=== PATIENT | female | born 1985 | race Caucasian/White ===

== ENCOUNTER 2019-12-27 11:13 | Emergency (ER) | payer OTHER, SELFPAY ==
[2019-12-27 11:15] VITALS: BP 123/78; PULSE 72; RESP 14; TEMP 35.8; O2SAT 98; BMI 34.8
--- NOTE | 2019-12-27 11:25 | ED_ITS ---
HPI - Wound/Laceration <WENDI Neumann - Last Filed: 12/27/19 12:02> General Chief Complaint: Wound/Laceration Stated Complaint: Cut rt hand/middle finger Time Seen by Provider: 12/27/19 11:21 Source: patient Mode of arrival: Ambulatory Limitations: no limitations History of Present Illness HPI narrative: This is a 34 year female, smoker, who presents to ED with significant other with chief complain of laceration on right, dominant hand, 3rd knuckle laceration from a steak knife about an hour ago. Patient reports she was unloading a senior it specialist and accidentally got a laceration from a knife that was sticking up. 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 Patient reports intact sensation and is able to move her hand/fingers and able to make a fist without difficulty. No active bleeding at this time. Related Data Allergies Allergy/AdvReac Type Severity Reaction Status Date / Time No Known Drug Allergies Allergy Verified 12/27/19 11:20 Review of Systems <WENDI Neumann - Last Filed: 12/27/19 12:02> Review of Systems Narrative: General: Denies fever, chills, fatigue, malaise, sweats. Respiratory: Denies dyspnea, cough, wheezing, hemoptysis, sputum. Cardiovascular: Denies chest pain, palpitations, orthopnea, edema. Musculoskeletal: Denies weakness, joint pain or bony pain. Skin: See HPI Neurologic: Denies weakness, headache, numbness, change in speech, confusion, seizures, incoordination. Psychiatric: No concerning psychosocial issues. 12-point review of systems is negative except for those stated above. Patient History <WENDI Neumann - Last Filed: 12/27/19 12:02> Medical History (Updated 12/27/19 @ 11:58 by WENDI Neumann) Anxiety (Acute) Depression (Acute) Surgical History (Updated 12/27/19 @ 11:28 by WENDI Neumann) History of knee surgery (Acute) Social History (Updated 12/27/19 @ 11:29 by WENDI Neumann) Smoking Status: Unknown if ever smoked alcohol intake: current Smoking Status: Unknown if ever smoked alcohol intake frequency: holidays/special occasions only Substance Use Type: does not use Exam <WENDI Neumann - Last Filed: 12/27/19 12:02> Narrative Exam Narrative: General appearance: well developed, well nourished, in no acute distress. Head: normocephalic, atraumatic, no scalp lesions, non-tender. ENT: Bilateral auditory canals and tympanic membranes clear. Hearing grossly intact. Nose without bleeding, purulent discharge, septal hematoma or deviation. Turbinate without erythema or swelling. Facial sinuses nontender to palpate. Mucous membrane moist, no mucosal lesion. Throat without erythema, tonsillar hypertrophy or exudate. Uvula in midline, airway patent. Neck/Thyroid: neck supple, full range of motion, no visible masses or meningeal signs. No JVD, non-tender without lymphadenopathy. Skin: 2 cm vertical laceration over right 3rd metacarpal joint Heart: no clubbing, no cyanosis, no edema. S1 and S2 normal. RRR w/o murmurs, clicks, or bruits. Lungs: Breathing even and unlabored. No stridor. No accessory muscles used. Able to speak in full sentences. Chest: normal shape and expansion. Abdomen: non-obese, non-distended. Neurologic: alert and oriented. Cognitive exam, [employer]ATOR and PNS grossly intact on informal exam. Psych: good eye contact, normal affect. Initial Vital Signs Initial Vital Signs: Vital Signs Temperature 96.4 F L 12/27/19 11:15 Pulse Rate 72 12/27/19 11:15 Respiratory Rate 14 12/27/19 11:15 Blood Pressure 123/78 12/27/19 11:15 Pulse Oximetry 98 12/27/19 11:15 Extrem Right upper extremity: hand Details: abnormal to inspection, normal capillary refill, neuromotor exam normal, neurosensory exam normal, tendon exam normal, vascular exam Details: radial pulse present and normal capillary refill, normal ROM of fingers and laceration; no swelling, no ecchymosis, no crepitus and no foreign bodies <Jina Chavez MD - Last Filed: 12/27/19 18:19> Initial Vital Signs Initial Vital Signs: Vital Signs Temperature 96.4 F L 12/27/19 11:15 Pulse Rate 72 12/27/19 11:15 Respiratory Rate 14 12/27/19 11:15 Blood Pressure 123/78 12/27/19 11:15 Pulse Oximetry 98 12/27/19 11:15 Procedures <Ebenezer MalloryWENDI Vaca - Last Filed: 12/27/19 12:02> Laceration Repair Laceration 1: Site: hand Side (If applicable): right Size (cm): 2 Description: linear Depth: simple, single layer Local Anesthetic: lidocaine 1% and with bicarb Amount of anesthesia used (mL): 4 Pre-repair: wound explored and irrigated extensively Skin layer closed with: nylon Size (cm): 4-0 Number of sutures: 3 Scores <Ebenezer CastellanosPADMINI VacaP - Last Filed: 12/27/19 12:02> GCS [place] coma scale eye opening: Spontaneous [place] coma scale verbal response: Orientated [place] coma scale motor response: Obey commands [place] coma scale total score: 15 Course <Ebenezer CastellanosWENDI Vaca - Last Filed: 12/27/19 12:02> Orders Ordered: Discontinued Medications Bacitracin (Bacitracin) 1 applic TOP NOW ONE Stop: 12/27/19 11:25 Last Admin: 12/27/19 11:42 Dose: 1 applic Documented by: BIRDIE Lidocaine/Sodium Bicarbonate (Buffered Lidocaine 10 Ml Syr) 10 ml INJ NOW ONE Stop: 12/27/19 11:25 Last Admin: 12/27/19 11:42 Dose: 10 ml Documented by: BIRDIE Vital Signs Vital signs: Vital Signs - 8 hr 12/27/19 11:15 Temperature 96.4 F L Pulse Rate 72 Respiratory Rate 14 Blood Pressure 123/78 Pulse Oximetry 98 <Jina Chavez MD - Last Filed: 12/27/19 18:19> Orders Ordered: Discontinued Medications Bacitracin (Bacitracin) 1 applic TOP NOW ONE Stop: 12/27/19 11:25 Last Admin: 12/27/19 11:42 Dose: 1 applic Documented by: BIRDIE Lidocaine/Sodium Bicarbonate (Buffered Lidocaine 10 Ml Syr) 10 ml INJ NOW ONE Stop: 12/27/19 11:25 Last Admin: 12/27/19 11:42 Dose: 10 ml Documented by: BIRDIE Vital Signs Vital signs: Vital Signs - 8 hr 12/27/19 11:15 Temperature 96.4 F L Pulse Rate 72 Respiratory Rate 14 Blood Pressure 123/78 Pulse Oximetry 98 [facility] - Wound/Laceration <WENDI Neumann - Last Filed: 12/27/19 12:02> Differential Diagnosis Differential diagnosis: Likely laceration Medical Records Attestation: I reviewed the patient's medical records. [facility] Narrative Medical decision making narrative: This is a 34 year female who presents to ED with 2 cm vertical linear laceration over right, dominant hand, 3rd metacarpal joint from a clean steak knife about 1 hour prior coming into ED. tetanus immunization is up to date. Patient is able to move her affected hand/fingers without difficulty with intact sensation. Laceration has been repaired with 3 s utures. See procedure note. Return precautions, home wound care discussed with patient. Modified work note provided to prevent rupturing suture from excessive movement of right hand. Patient verbalized understanding and agreement with treatment plan. Patient tolerated procedure well. Discharge Plan Departure Patient Disposition: Home Clinical Impression: Laceration Discharge Date/Time: 12/27/19 12:07 Instructions: DI for Laceration Repair Activity Restrictions/Additional Instructions: You have been diagnosed with [ linear 2 cm laceration on right, dominant hand, on 3rd meta carpal knuckle which has been repaired with 3 sutures.]. What to do: Please do not get your wound soaked in the water until suture removal. Keep your dressing intact for next 24 hrs. After then, you could remove your dressing, wash with soap and water. Pat dry with clean paper towel and dress it with antibiotic ointment. You can change dressing as needed and daily. Please monitor for signs and symptoms for infection such as increasing redness, swelling, warmth, pain, fever, purulent discharge. If this occurs, please return to ED or follow up with your primary care physician since your wound may be gotten infected. Please follow up with your primary care provider in 2-3 days for recheck wound. Your suture should be removed [7-10 ] days. This can be done by your primary provider, walk-in clinic or here in ED. Please keep your wound clean, dry and intact all times. *Take your medications as directed. You can take [id number] Tylenol and or Motrin as needed for discomfort. Please avoid using affected hand excessively to prevent rupturing sutures. [facility]errals: [facility] [Outside] Stand Alone Forms: Work Release Note <Jina L Laursen, MD - Last Filed: 12/27/19 18:19> Cosign ED Attending Cosignature Attestation: I was immediately available in the department for consultation throughout this patient's visit. I agree with documentation as above. Jina Chavez MD
[2019-12-27] MEDS: LIDO 1%/SOD BICARB 8.4% (10ML) 10 ML SYRINGE INJ (11:42)
[2019-12-27] MEDS: BACITRACIN OINT 0.9 GM PCKT 1 APPLIC TOP (11:42)
== END 2019-12-27 12:07 | disposition home or self-care (01) ==
PROVIDERS: Emergency Provider Nurse Practitioner Family
DX: S61.411A Laceration without foreign body of right hand, initial encounter (principal); W26.0XXA Contact with knife, initial encounter
CPT/HCPCS: 12001; 99283

== ENCOUNTER 2020-05-20 22:08 | Emergency (ER) | payer OTHER, SELFPAY ==
[2020-05-20 22:10] VITALS: BP 135/86; PULSE 92; RESP 16; TEMP 36.9; O2SAT 99; BMI 34.8
[2020-05-20 22:38] LABS: Add Manual Diff / Slide Review NO; Basophils Absolute Auto 100 /uL (0-100); Basophils Percent Auto 0.8 % (0-2); Eosinophils Absolute Auto 200 /uL (0-450); Eosinophils Percent Auto 2.3 % (2-4); Hematocrit 48.2 % (36-46); Hemoglobin 16.1 g/dL (12.0-16.0); Lymphocytes Absolute Auto 2100 /uL (1100-4500); Lymphocytes Percent Auto 24.8 % (25-40); Mean Corpuscular HGB Conc 33.4 % (30-36); Mean Corpuscular Hemoglobin 32.8 PG (26-34); Mean Corpuscular Volume 98.2 fL (80-100); Monocytes Absolute Auto 700 /uL (0-900); Monocytes Percent Auto 8.2 % (3-14); Neutrophils Absolute Auto 5500 /uL (1500-7000); Neutrophils Percent Auto 63.9 % (50-75); Platelet Count 327 X10^3/uL (150-400); Red Blood Cell Count 4.91 X10^6/uL (4.0-5.2); Red Cell Distribution Width 12.3 % (11.6-14.8); White Blood Cell Count 8.6 X10^3/uL (4.5-11.0)
[2020-05-20 22:45] LABS: BUN Creatinine Ratio 18.3 (6-22); Blood Urea Nitrogen 21 mg/dL (7-17); Calcium 9.3 mg/dL (8.4-10.2); Carbon Dioxide 28 mmol/L (22-32); Chloride 103 mmol/L (98-107); Glucose 107 mg/dL (70-100); HEMOLYSIS 16 (0-50); Potassium 3.9 mmol/L (3.4-5.1); Sodium 139 mmol/L (137-145)
--- NOTE | 2020-05-20 22:48 | DI.CT.S_ITS ---
PROCEDURE: CT KIDNEY URETER BLADDER (KUB) INDICATIONS: Possible right-sided kidney stone TECHNIQUE: Noncontrast 5 mm thick sections acquired from the diaphragms to the symphysis. 5 mm thick coronal and sagittal reformats were then performed. For radiation dose reduction, the following was used: automated exposure control, adjustment of mA and/or kV according to patient size. COMPARISON: None. FINDINGS: Image quality: Excellent. Lung bases: Lung bases are clear. Heart size is normal. Urinary system: There are bilateral calcifications within the medullary pyramids of the kidneys consistent with medullary nephrocalcinosis. In addition, there are at least 4 nonobstructing renal stones on the right with the largest measuring up to 7 mm and at least 8 nonobstructing stones on the left, with the largest measuring up to approximately 3 mm. No hydronephrosis or perinephric stranding. Both ureters appear non-dilated throughout their expected courses. Bladder wall thickness is normal; no calcified bladder stones. Other solid organs: Noncontrast evaluation of the liver demonstrates no focal hepatic lesions. Gallbladder appears within normal limits without calcified gallstones. Pancreas is normal in contours without peripancreatic fat stranding or fluid collections. Spleen is normal in size. No adrenal nodules. Peritoneum and bowel: Unenhanced bowel loops demonstrate normal wall thickness and caliber. No evidence of appendicitis. There are few colonic diverticula without acute diverticulitis. No free fluid or air. Nodes and vessels: No retroperitoneal or mesenteric adenopathy by size criteria. Aorta and inferior vena cava are normal in caliber. Abdominal wall: No ventral hernias. Pelvis: No free pelvic fluid. No inguinal hernias or adenopathy. Bones: No suspicious bony lesions. No vertebral body compression fractures. IMPRESSION: 1. Bilateral nephrolithiasis without evidence of obstructive uropathy. 2. Bilateral medullary nephrocalcinosis demonstrated in the kidneys. The findings are nonspecific and the differential is broad including medullary sponge kidney, hyperparathyroidism, or renal tubular acidosis among other etiologies. Dictated by: Andrey Craven M.D. on 05/21/2020 at 8:55 Approved by: Andrey Craven M.D. on 05/21/2020 at 9:01
--- NOTE | 2020-05-20 22:49 | ED_ITS ---
HPI - General Adult General Chief complaint: Abdominal Pain Stated complaint: thinks she has a kidney stone Time Seen by Provider: 05/20/20 22:12 Source: patient Mode of arrival: Ambulatory Limitations: no limitations History of Present Illness HPI narrative: Otherwise healthy 34-year-old female with history of multiple kidney stones and lithotripsy here for evaluation of 2 weeks of right-sided flank pain. She states she came in today because earlier in the day she had some problems urinating. No fevers. She states that it feels ?somewhat ?like prior history of kidney stones. Has not tried anything for her symptoms prior to arrival. Related Data Home Medications Medication Instructions Recorded Confirmed acetazolamide 250 mg tablet 500 mg PO BID tab 04/26/20 04/26/20 buspirone 15 mg tablet 15 mg PO BID 04/26/20 04/26/20 omeprazole 20 mg capsule,delayed 20 mg PO DAILY 04/26/20 04/26/20 release sertraline 50 mg tablet 50 mg PO DAILY 04/26/20 04/26/20 Allergies Allergy/AdvReac Type Severity Reaction Status Date / Time No Known Drug Allergies Allergy Verified 12/27/19 11:20 Review of Systems Constitutional Constitutional: Denies fever(s) and Denies headache(s) ENT Ears, Nose, Mouth, and Throat: Denies headache(s) Cardiovascular Cardiovascular: Denies chest pain and Denies dyspnea Respiratory Respiratory: Denies dyspnea Gastrointestinal Gastrointestinal: Denies change in bowel habits, Reports nausea and Denies vomiting Comments: Right-sided flank pain Genitourinary Genitourinary: Denies dysuria, Reports urinary frequency, Reports urinary hesitancy and Reports urinary urgency Genitourinary: Reports urinary frequency, Denies dysuria, Reports urinary hesitancy, Reports urinary urgency and Denies vaginal discharge Musculoskeletal Musculoskeletal: Denies arthralgias and Denies myalgias Integumentary/Breasts Skin/Breast: Denies rash Neurologic Neurologic: Denies behavioral changes and Denies headache(s) Psychiatric Psychiatric: Denies behavioral changes Hematologic/Lymphatic Hematologic/Lymphatic: Denies easy bleeding and Denies easy bruising Patient History Medical History Anxiety (Acute) Depression (Acute) Surgical History History of knee surgery (Acute) Family History Family/Other Loud snoring Hypertension Diabetes mellitus Heart disease Dementia Father Loud snoring Obesity Hypertension Depression Anxiety Substance abuse Mother Loud snoring Insomnia Restless leg Hypertension Substance abuse Family/Other ADD (attention deficit disorder) Substance abuse Social History Smoking Status: Current every day smoker alcohol intake: current Smoking Status: Current every day smoker tobacco type: vaping alcohol intake frequency: a few times a week Substance Use Type: does not use Exam Initial Vital Signs Initial Vital Signs: Vital Signs Temperature 98.5 F 05/20/20 22:10 Pulse Rate 92 H 05/20/20 22:10 Respiratory Rate 16 05/20/20 22:10 Blood Pressure 135/86 05/20/20 22:10 Pulse Oximetry 99 05/20/20 22:10 Const General: cooperative and comfortable Limitations: mental status not altered HENMT Head: normal to inspection and normocephalic Resp Effort & Inspection: normal respiratory effort Cardio Rate: regular rate GI Inspection: non-distended Palpation: tender (Right flank/right lower quadrant) Back/Spine/Pelvis Back: No CVA tenderness Skin Lesions: no lesions Rashes: no rashes Neuro General: patient alert and patient awake Cognition: normal cognition Speech: speech normal Extrem General: normal to inspection and capillary refill normal Psych Appearance: grossly normal and well kempt Scores GCS [place] coma scale eye opening: Spontaneous [place] coma scale motor response: Obey commands Course Orders Ordered: ED Orders 05/20/20 22:22 Basic Metabolic Panel Stat Complete Blood Count AUTO DIFF Stat 05/20/20 22:48 CT kidney ureter bladder (KUB) Stat Discontinued Medications Hydromorphone HCl (Dilaudid) 1 mg IV NOW ONE Stop: 05/20/20 22:50 Last Admin: 05/20/20 23:02 Dose: 1 mg Documented by: ARVIND Ketorolac Tromethamine (Toradol) 30 mg IV NOW ONE Stop: 05/20/20 22:50 Last Admin: 05/20/20 23:02 Dose: 30 mg Documented by: ARVIND Ondansetron HCl (Zofran) 4 mg IV NOW ONE Stop: 05/20/20 22:50 Last Admin: 05/20/20 23:02 Dose: 4 mg Documented by: ARVIND Vital Signs Vital signs: Vital Signs - 8 hr 05/20/20 22:10 05/21/20 00:00 Temperature 98.5 F Pulse Rate 92 H 78 Respiratory Rate 16 18 Blood Pressure 135/86 128/88 Pulse Oximetry 99 98 Medical Decision Making Lab Data Lab results reviewed: Yes I reviewed the patient's lab results. Result diagrams: 05/20/20 22:22 05/20/20 22:22 Labs: Lab Results 05/20/20 05/20/20 Range/Units 22:22 22:22 WBC 8.6 (4.5-11.0) X10^3/uL RBC 4.91 (4.0-5.2) X10^6/uL Hgb 16.1 H (12.0-16.0) g/dL Hct 48.2 H (36-46) % MCV 98.2 (80-100) fL MCH 32.8 (26-34) PG MCHC 33.4 (30-36) % RDW 12.3 (11.6-14.8) % Plt Count 327 (150-400) X10^3/uL Neut % (Auto) 63.9 (50-75) % Lymph % (Auto) 24.8 L (25-40) % [place] % (Auto) 8.2 (3-14) % Eos % (Auto) 2.3 (2-4) % Baso % (Auto) 0.8 (0-2) % Neut # (Auto) 5500 (9248-3729) /uL Lymph # (Auto) 2100 (5917-0510) /uL [place] # (Auto) 700 (0-900) /uL Eos # (Auto) 200 (0-450) /uL Baso # (Auto) 100 (0-100) /uL Sodium 139 (137-145) mmol/L Potassium 3.9 (3.4-5.1) mmol/L Chloride 103 (98-107) mmol/L Carbon Dioxide 28 (22-32) mmol/L BUN 21 H (7-17) mg/dL Creatinine 1.15 H (0.52-1.04) mg/dL Estimated GFR 54.0 L (>60) mL/min BUN/Creatinine Ratio 18.3 (6-22) Glucose 107 H (70-100) mg/dL Calcium 9.3 (8.4-10.2) mg/dL Point of Care Testing Test Results Negative Urine Dip Bedside Urine Glucose Negative Bedside Urine Bilirubin + 1 Bedside Urine Ketone - Negative Urine Specific [place] 1.025 Bedside Urine Occult Blood - Negative Bedside Urine pH 6 Bedside Urine Protein - Negative Bedside Urine Urobilinogen - Negative Bedside Urine Nitrite - Negative Bedside Urine Leukocytes - Negative Esterase Point of care testing: Point of Care Testing Test Results Negative Urine Dip Bedside Urine Glucose Negative Bedside Urine Bilirubin + 1 Bedside Urine Ketone - Negative Urine Specific [place] 1.025 Bedside Urine Occult Blood - Negative Bedside Urine pH 6 Bedside Urine Protein - Negative Bedside Urine Urobilinogen - Negative Bedside Urine Nitrite - Negative Bedside Urine Leukocytes - Negative Esterase Imaging Data CT scan - abdomen/pelvis: Radiologist's Impression: No acute findings Multiple nonobstructive bilateral renal calculi, no ureteral calculi no hydronephrosis MDM Narrative Medical decision making narrative: CT scan shows no acute pathology to include ureteral stones/appendicitis. Her urinalysis is not consistent with the UTI which makes pyelonephritis unremarkable. The CT scan was ordered secondary to the fact that the patient states that this feels somewhat like prior kidney stones and the fact that she was tender with palpation the right lower quadrant. I felt it was necessary to evaluate for further potential issues. Patient states she feels somewhat better after medications. No indication for antibi otics. No indication for surgical consultation. I did discuss all this with the patient. We discussed return precautions and follow-up instructions. She expressed understanding and agreement. Discharge Plan Departure Patient Disposition: Home Clinical Impression: Acute right flank pain Discharge Date/Time: 05/21/20 00:01 Instructions: DI for Kidney Stones Activity Restrictions/Additional Instructions: You have no restrictions on your activities. Continue all of your medications as directed. I do recommend that you may contact with her medical department that you can discuss the multiple kidney stones that you have in to discuss the indications for referral to see Urology. Return to the emergency department for any new or worsening symptoms Prescriptions: No Action sertraline [Zoloft] 50 mg tablet 50 mg PO DAILY RF: 0 buspirone 15 mg tablet 15 mg PO BID RF: 0 omeprazole 20 mg capsule,delayed release(DR/EC) 20 mg PO DAILY RF: 0 acetazolamide 250 mg tablet 500 mg PO BID RF: 0
[2020-05-20] MEDS: ONDANSETRON 4 MG/2 ML INJ IV (23:02)
[2020-05-20] MEDS: KETOROLAC 60 MG/2 ML VIAL 30 MG IV (23:02)
[2020-05-20] MEDS: HYDROMORPHONE 1 MG INJ IV (23:02)
[2020-05-21] VITALS: BP 128/88; PULSE 78; RESP 18; O2SAT 98
== END 2020-05-21 00:01 | disposition home or self-care (01) ==
PROVIDERS: Emergency Provider Emergency Medicine
DX: R10.9 Unspecified abdominal pain (principal); R11.0 Nausea; R39.15 Urgency of urination; Z87.442 Personal history of urinary calculi
CPT/HCPCS: 36415; 74176; 80048; 81003; 81025; 85025; 96374; 96375; 99284; J1170; J1885; J2405

== ENCOUNTER 2021-04-19 15:48 | Emergency (ER) | payer OTHER, SELFPAY ==
[2021-04-19 16:08] VITALS: BP 135/98; PULSE 100; RESP 14; TEMP 35.8; O2SAT 98; BMI 34.8
[2021-04-19] MEDS: ONDANSETRON 4 MG/2 ML INJ IV (19:32)
[2021-04-19] MEDS: SODIUM CHLORIDE 0.9% 1,000 ML 1000 ML IV (19:32)
[2021-04-19 20:28] LABS: Add Manual Diff / Slide Review NO; Basophils Absolute Auto 0 /uL (0-100); Basophils Percent Auto 0.5 % (0-2); Eosinophils Absolute Auto 100 /uL (0-450); Eosinophils Percent Auto 1.7 % (2-4); Hematocrit 46.4 % (36-46); Hemoglobin 15.7 g/dL (12.0-16.0); Lymphocytes Absolute Auto 1600 /uL (1100-4500); Lymphocytes Percent Auto 22.4 % (25-40); Mean Corpuscular HGB Conc 33.9 % (30-36); Mean Corpuscular Hemoglobin 33.8 PG (26-34); Mean Corpuscular Volume 99.6 fL (80-100); Monocytes Absolute Auto 600 /uL (0-900); Monocytes Percent Auto 8.8 % (3-14); Neutrophils Absolute Auto 4700 /uL (1500-7000); Neutrophils Percent Auto 66.6 % (50-75); Platelet Count 318 X10^3/uL (150-400); Red Blood Cell Count 4.66 X10^6/uL (4.0-5.2); White Blood Cell Count 7.1 X10^3/uL (4.5-11.0)
[2021-04-19 20:39] LABS: Alanine Aminotransferase 44 IU/L (<35); Albumin 4.3 g/dL (3.5-5.0); Albumin Globulin Ratio 1.3 (1.0-2.8); Alkaline Phosphatase 50 U/L (38-126); Aspartate Aminotransferase 50 IU/L (14-36); Bilirubin Total 0.5 mg/dL (0.2-1.3); Blood Urea Nitrogen 21 mg/dL (7-17); Calcium 9.8 mg/dL (8.4-10.2); Carbon Dioxide 23 mmol/L (22-32); Chloride 106 mmol/L (98-107); Estimated Glomerular Filt Rate 59.6 mL/min (>60); Globulin 3.4 g/dL (1.7-4.1); Glucose 84 mg/dL (70-100); HEMOLYSIS 17 (0-50); Sodium 138 mmol/L (137-145); Total Protein 7.7 g/dL (6.3-8.2)
[2021-04-19] MEDS: KETOROLAC 30 MG/ML VIAL IV (20:40)
--- NOTE | 2021-04-19 20:54 | ED.ABDPAIN ---
HPI - Abdominal Pain General Chief Complaint: Urogenital-Female Stated Complaint: Possible Kidney Stone, Sent by [facility] Time Seen by Provider: 04/19/21 20:21 Source: patient Mode of arrival: Ambulatory Limitations: no limitations History of Present Illness HPI narrative: Patient is a 35-year-old female history of kidney stones, depression and ovarian cyst presenting with 3 days of left lower quadrant pain that radiates to her flank. It feels similar to prior kidney stones. She denies any fever or chills she occasionally has nausea but no vomiting. Pain is significantly worse today. She has had lithotripsy 2 years ago in [place] her last CT was in September but at that time she was also having pain with an ovarian cyst. Related Data Home Medications Medication Instructions Recorded Confirmed acetazolamide 250 mg tablet 500 mg PO BID tab 04/26/20 04/26/20 buspirone 15 mg tablet 15 mg PO BID 04/26/20 04/26/20 omeprazole 20 mg capsule,delayed 20 mg PO DAILY 04/26/20 04/26/20 release sertraline 50 mg tablet (Zoloft) 50 mg PO DAILY 04/26/20 04/26/20 Previous Rx's Medication Instructions Recorded hydrocodone 5 mg-acetaminophen 325 1 tab PO Q6H PRN #10 tab 04/19/21 mg tablet ondansetron 4 mg disintegrating 4 mg PO Q8H PRN #10 tab 04/19/21 tablet Allergies Allergy/AdvReac Type Severity Reaction Status Date / Time No Known Drug Allergies Allergy Verified 04/19/21 16:12 Review of Systems Review of Systems Narrative: GENERAL: Denies chills, fatigue, malaise, fever, sweats, travel HEENT: Denies sinus pain, ear pain, sore throat, difficulty swallowing, neck pain RESPIRATORY: Denies dyspnea, cough, wheezing, hemoptysis, sputum. CARDIOVASCULAR: Denies chest pain, palpitations, orthopnea, edema GASTROINTESTINAL: Denies nausea, vomiting, abdominal pain, diarrhea, constipation, melena. : see hpi MUSCULOSKELETAL: Denies weakness, joint pain, or bony pain SKIN: No rash, no erythema, no pruritus NEUROLOGIC: Denies weakness, dizziness, headache, numbness, change in speech, confusion PSYCHIATRIC: No concerning psychosocial issues. 12 point review of systems is negative except for those stated above and HPI Patient History Medical History (Updated 04/19/21 @ 21:00 by Carol Boucher DO) Anxiety Depression Surgical History History of knee surgery Family History Family/Other Loud snoring Hypertension Diabetes mellitus Heart disease Dementia Father Loud snoring Obesity Hypertension Depression Anxiety Substance abuse Mother Loud snoring Insomnia Restless leg Hypertension Substance abuse Family/Other ADD (attention deficit disorder) Substance abuse Social History Smoking Status: Current every day smoker alcohol intake: current Smoking Status: Current every day smoker tobacco type: vaping alcohol intake frequency: holidays/special occasions only Substance Use Type: does not use Exam Initial Vital Signs Initial Vital Signs: Vital Signs Temperature 96.5 F L 04/19/21 16:08 Pulse Rate 100 H 04/19/21 16:08 Respiratory Rate 14 04/19/21 16:08 Blood Pressure 135/98 H 04/19/21 16:08 Pulse Oximetry 98 04/19/21 16:08 GENERAL: Well-appearing, well-nourished and in no acute distress. HEENT: Head atraumatic,EOMI, pupils reactive, face symmetric, moist mucous membrane CARDIOVASCULAR: Regular rate and rhythm without murmurs, rubs or gallops. RESPIRATORY: Breath sounds equal bilaterally, no wheezes rales or rhonchi. ABDOMEN: Soft, nontender. Normoactive bowel sounds all 4 quadrants. No guarding or rebound. : left CVA tenderness EXTREMITIES: Normal range of motion, no clubbing or edema. Neurovascularly intact NEUROLOGICAL: Alert and oriented x4.Normal gait and speech. SKIN: Warm, dry, no laceration, no petechiae, no rashes or lesions. Course Orders Ordered: ED Orders 04/19/21 19:25 CMP [Comprehensive Metabolic Panel] Stat Complete Blood Count AUTO DIFF Stat Discontinued Medications Hydrocodone Bitart/Acetaminophen (Hydrocodone/Acet 5/325 Prepack) 1 bottle MISC SEEINSTR ONE Stop: 04/19/21 21:03 Last Admin: 04/19/21 21:20 Dose: 1 bottle Documented by: CSIEDLE Sodium Chloride (Normal Saline 0.9%) 1,000 mls @ 1,000 mls/hr IV BOLUS ONE Stop: 04/19/21 20:30 Last Infusion: 04/19/21 20:20 Dose: 0 mls/hr Documented by: Admin: 04/19/21 19:32 Dose: 1,000 mls/hr Documented by: DAWOOD Ketorolac Tromethamine (Ketorolac 30 Mg/Ml Vial) 30 mg IV NOW ONE Stop: 04/19/21 20:22 Last Admin: 04/19/21 20:40 Dose: 30 mg Documented by: DAWOOD Ondansetron HCl (Ondansetron 4 Mg/2 Ml Inj) 4 mg IV NOW ONE Stop: 04/19/21 19:32 Last Admin: 04/19/21 19:32 Dose: 4 mg Documented by: DAWOOD Ondansetron HCl (Ondansetron 4 Mg Odt Prepack) 1 bottle MISC SEEINSTR ONE Stop: 04/19/21 21:03 Last Admin: 04/19/21 21:20 Dose: 1 bottle Documented by: DAWOOD Vital Signs Vital signs: Vital Signs - 8 hr 04/19/21 21:22 Pulse Rate 90 Respiratory Rate 16 Blood Pressure 136/82 Pulse Oximetry 97 MDM - Abdominal Pain Lab Data Result diagrams: 04/19/21 19:25 04/19/21 19:25 Labs: Lab Results 04/19/21 04/19/21 Range/Units 19:25 19:25 WBC 7.1 (4.5-11.0) X10^3/uL RBC 4.66 (4.0-5.2) X10^6/uL Hgb 15.7 (12.0-16.0) g/dL Hct 46.4 H (36-46) % MCV 99.6 (80-100) fL MCH 33.8 (26-34) PG MCHC 33.9 (30-36) % RDW 13.0 (11.6-14.8) % Plt Count 318 (150-400) X10^3/uL Neut % (Auto) 66.6 (50-75) % Lymph % (Auto) 22.4 L (25-40) % [place] % (Auto) 8.8 (3-14) % Eos % (Auto) 1.7 L (2-4) % Baso % (Auto) 0.5 (0-2) % Neut # (Auto) 4700 (7570-7544) /uL Lymph # (Auto) 1600 (3053-2866) /uL [place] # (Auto) 600 (0-900) /uL Eos # (Auto) 100 (0-450) /uL Baso # (Auto) 0 (0-100) /uL Sodium 138 (137-145) mmol/L Potassium 4.0 (3.4-5.1) mmol/L Chloride 106 (98-107) mmol/L Carbon Dioxide 23 (22-32) mmol/L BUN 21 H (7-17) mg/dL Creatinine 1.05 H (0.52-1.04) mg/dL Estimated GFR 59.6 L (>60) mL/min BUN/Creatinine Ratio 20.0 (6-22) Glucose 84 (70-100) mg/dL Calcium 9.8 (8.4-10.2) mg/dL Total Bilirubin 0.5 (0.2-1.3) mg/dL AST 50 H (14-36) IU/L ALT 44 H (<35) IU/L Alkaline Phosphatase 50 (38-126) U/L Total Protein 7.7 (6.3-8.2) g/dL Albumin 4.3 (3.5-5.0) g/dL Globulin 3.4 (1.7-4.1) g/dL Albumin/Globulin Ratio 1.3 (1.0-2.8) Point of care testing: Point of Care Testing Test Results Negative Urine Dip Bedside Urine Glucose Negative Bedside Urine Bilirubin - Negative Bedside Urine Ketone +/- 5 Urine Specific [place] 1.030 Bedside Urine Occult Blood - Negative Bedside Urine pH 6.0 Bedside Urine Protein - Negative Bedside Urine Urobilinogen - Negative Bedside Urine Nitrite - Negative Bedside Urine Leukocytes - Negative Esterase MDM Narrative Medical decision making narrative: Discussion with patient at this time blood work and urine are overall reassuring. No sign of infection. Patient has had numerous kidney stones in the past with a recent CT scan in September. Discussed with her CT at this time of versus conservative management. At this time she agrees to conservative management with pain control at home. If symptoms are to worsen then she will turn to the ED for further evaluation and probable imaging. Pain overall significantly improved after Toradol and not needing anything further. Discharge Plan Departure Patient Disposition: Home Clinical Impression: Kidney stone on left side Instructions: DI for Kidney Stones Activity Restrictions/Additional Instructions: * You've been diagnosed with kidney stone * What to do: Increase fluid intake, at this time we decided not to do a CT scan based on her history. However if symptoms are worsening in your having continued pain despite pain medication at home return to the emergency department * Please follow-up with your primary care provider in the next 2-3 days, you may require urology consultation please discuss this with -If you should have fever, or pain is uncontrolled with medication at home or any other concerning symptoms return to ER for further evaluation MEDICATIONS Take Motrin 800 mg every 8 hours as needed for pain--do not take for 8 hours he received his Toradol in the emergency department Take [place] every 6 hours if needed for severe pain Take Zofran every 4-6 hours if needed for nausea CONTROLLED SUBSTANCE DISCHARGE (Narcotoic/benzodiazepine) 1. You have been prescribed narcotic medications, it does have acetaminophen/Tylenol/paracetamol in it so do not take extra Tylenol or Tylenol containing products 2. Please understand that we cannot provide further refills of narcotics, benzodiazepines or controlled substances through the ED and her pain management will need to be through your provider. 3. While on these medications you cannot drive or operate heavy machinery. 4. You cannot sign legal documents or perform any duties such as this. 5. As long as you're taking opiate pain medications he should also be taking a stool softener such as Colace, Dulcolax, MiraLAX or prune juice, to help avoid constipation. Prescriptions: New hydrocodone-acetaminophen 5-325 mg tablet 1 tab PO Q6H PRN (Reason: pain) Qty: 10 RF: 0 ondansetron 4 mg tablet,disintegrating 4 mg PO Q8H PRN (Reason: nausea and vomiting) Qty: 10 RF: 0 No Action sertraline [Zoloft] 50 mg tablet 50 mg PO DAILY RF: 0 buspirone 15 mg tablet 15 mg PO BID RF: 0 omeprazole 20 mg capsule,delayed release(DR/EC) 20 mg PO DAILY RF: 0 acetazolamide 250 mg tablet 500 mg PO BID RF: 0 Referrals: [facility] [Provider Group]
[2021-04-19] MEDS: HYDROCODONE/ACET 5/325 PREPACK 1 BOTTLE MISC (21:20)
[2021-04-19] MEDS: ONDANSETRON 4 MG ODT PREPACK 1 BOTTLE MISC (21:20)
[2021-04-19 21:22] VITALS: BP 136/82; PULSE 90; RESP 16; O2SAT 97
== END 2021-04-19 21:22 | disposition home or self-care (01) ==
PROVIDERS: Emergency Provider Emergency Medicine
DX: N20.0 Calculus of kidney (principal); R11.0 Nausea
CPT/HCPCS: 80053; 81003; 81025; 85025; 96361; 96374; 96375; 99283; 99284; J1885; J2405

== ENCOUNTER → 2021-10-15 10:31 | Outpatient (CLI) | payer OTHER, SELFPAY ==
--- NOTE | 2021-10-15 | DI.RAD.S_ITS ---
PROCEDURE: XR ABDOMEN 1V INDICATIONS: Calculus of kidney TECHNIQUE: One view of the abdomen acquired. COMPARISON: [facility], CR, XR ABDOMEN 1 VIEW, 09/19/2021, 9:09. FINDINGS: Surgical changes and devices: None. Bowel: Bowel gas pattern is normal. Soft tissues: No change in 3 mm calcification projecting over the right superior pole kidney.. Visualized solid organ contours appear normal in size. Bones: No suspicious bony lesions. IMPRESSION: No change in small calcification projecting over the right kidney. Dictated by: Lucita Hedrick M.D. on 10/15/2021 at 12:38 Approved by: Lucita Hedrick M.D. on 10/15/2021 at 12:38
== END ==
PROVIDERS: PCP Student in an Organized Health Care Education/Training Program; Referring Provider Urology; Visit Provider Physician Assistant Medical
DX: N20.0 Calculus of kidney (principal)
CPT/HCPCS: 74018